=== PATIENT | male | born 1960 | race Caucasian/White ===

== ENCOUNTER 2019-08-15 18:32 | Emergency (ER) | payer MEDICARE ==
[~2019-08-15] VITALS: Ht 188 cm; Wt 98.6 kg
[2019-08-15 18:34] VITALS: BP 119/73
[2019-08-15] MEDS ORDERED: ibuprofen tablet 400 MG TABLET PO ONE (19:15)
[2019-08-15] MEDS ORDERED: CEPH500C5 PO (19:39)
[2019-08-15] MEDS ORDERED: IBUP-1984 PO (19:39)
== END 2019-08-15 19:49 | disposition home or self-care (01) ==
LOC: ER 18:33
DX: L03.116 Cellulitis of left lower limb (principal); Z88.5 Allergy status to narcotic agent; Z79.899 Other long term (current) drug therapy
CPT/HCPCS: 73630; 99283